=== PATIENT | male | born 1990 ===

== ENCOUNTER 2018-11-04 11:39 | Emergency (ER) | payer MEDICAID, OTHER ==
[2018-11-04 11:54] VITALS: BMI 29.0
[2018-11-04] MEDS ORDERED: Tetanus/Diphtheria Toxoids 0.5 ml Syringe IM ONE ×2 (12:20→12:29)
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
[2018-11-04 13:53] VITALS: BP 115/72; PULSE 77; RESP 18; TEMP 98.4; O2SAT 97
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
== END 2018-11-04 13:53 | disposition home or self-care (01) ==
LOC: C.ER 11:39
DX: S09.90XA Unspecified injury of head, initial encounter (principal); S20.211A Contusion of right front wall of thorax, initial encounter; S00.81XA Abrasion of other part of head, initial encounter; S20.311A Abrasion of right front wall of thorax, initial encounter; Y04.0XXA Assault by unarmed brawl or fight, initial encounter